=== PATIENT | male | born 1950 | race Caucasian/White ===

== ENCOUNTER 2019-07-30 11:00 | Outpatient (RCR) | payer MEDICARE, OTHER ==
[~2019-07-30 11:00] MED LIST: CELEXA40 MG; NAPROXEN; NORCO 7.5-3251 EACH PO; PREDNISONE PO; PRISTIQ ER100 MG PO; VICODIN PO; WELLBUTRIN SR150 MG
== END 2019-08-01 ==
LOC: PT 11:00
PROVIDERS: ATTEND Specialist
DX: M75.41 Impingement syndrome of right shoulder (principal)

== ENCOUNTER 2019-08-23 10:51 | Outpatient (RCR) | payer MEDICARE, OTHER | END 2019-08-31 | LOC: PT 10:51 | PROVIDERS: ATTEND Specialist | DX: M75.41 Impingement syndrome of right shoulder (principal) ==

== ENCOUNTER → 2019-08-30 | Outpatient (CLI) | payer MEDICARE, OTHER ==
--- NOTE | 2019-08-30 11:13 | Diagnostic Imaging Report ---
TECHNIQUE: Magnetic resonance imaging of the RIGHT SHOULDER was performed WITHOUT injected contrast. COMPARISON: None available. HISTORY: Right shoulder pain FINDINGS: MUSCLES AND TENDONS: Rotator Cuff: Tendons: Full thickness tearing of the supraspinatus and infraspinatus tendon with retraction to the glenohumeral joint. Muscles: Mild muscle atrophy of the supraspinatus and infraspinatus and more advanced atrophy of the teres minor. Biceps Tendon: The long head of the biceps tendon is intact and within the intertubercular groove. GLENOHUMERAL JOINT: High riding humeral head. Posterior subluxation of the humeral head. Joint effusion. Glenoid Labrum: Superior labral tearing. Articular Cartilage: No focal defect. AC JOINT AND ACROMION: Mild hypertrophic degenerative changes of the acromioclavicular joint. Subacromial spurring BONE: No acute fracture. SOFT TISSUES: Fluid in the subacromial subdeltoid bursa. IMPRESSION: Supraspinatus and infraspinatus full thickness tearing with retraction to the glenohumeral joint and mild atrophy. 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 Signed by: Dr. Milad Hurley M.D. on 08/30/2019 11:10 AM
== END ==
LOC: MRI 09:56
PROVIDERS: ATTEND Specialist
DX: M75.41 Impingement syndrome of right shoulder (principal)

== ENCOUNTER → 2019-09-14 | Day surgery (SDC) | payer MEDICARE, OTHER ==
--- NOTE | 2019-09-09 14:00 | Diagnostic Imaging Report ---
X-ray chest PA and lateral History: Preop. Comparison: None. Findings: Central airways, cardiomediastinal silhouettes, pleural spaces, lung becerra, upper abdomen unremarkable. There is presence of degenerative change in the right shoulder. Degenerative changes in the thoracic spine. Impression: No acute cardiopulmonary disease. Signed by: Ulises Bajwa MD on 09/09/2019 1:56 PM
[2019-09-09 14:45] LABS: BASOPHILS # (AUTO) 0.1 (0.0-0.1); EOSINOPHILS # (AUTO) 0.4 (0.0-0.4); EOSINOPHILS % 4.4 % (0.0-6.0); HEMATOCRIT 44.9 % (38.2-49.6); HEMOGLOBIN 15.2 g/dL (14.0-18.0); LYMPHOCYTES # (AUTO) 1.4 (1.0-3.2); LYMPHOCYTES % 17.2 % (18.0-39.1); MEAN CORPUSCULAR HEMOGLOBIN 31.1 pg (28-32); MEAN CORPUSCULAR HGB CONC 33.9 g/dL (31-35); MONOCYTES % 11.8 % (4.4-11.3); NEUTROPHILS # (AUTO) 5.3 (2.1-6.9); NEUTROPHILS % 64.7 % (38.7-80.0); PLATELET COUNT 299 x10e3/uL (140-360); RED BLOOD COUNT 4.88 x10e6/uL (4.3-5.7)
[~2019-09-14] MED LIST changes: +ACETAMINOPHEN 1000 MG/100 ML IV ONE; +AMLODIPINE BESY10 MG PO; +BUPIVACAINE HCL 0.5% INJ 30 ML VIAL INJ ONE; +CEFAZOLIN SOD 1 GM/NS 50ML 50 ML IV ONE; +CELEBREX200 MG PO; +EPINEPHRINE HCL 1:1000 1ML 1 MG/ML AMP ONE; +ETOMIDATE 2 MG/ML 10 ML INJ IV ONE; +GLYCOPYRROLATE INJ 0.2 MG/ML VIAL ONE; +LIDOCAINE HCL 2% LOCAL INJ 5 ML SDV VIAL INJ ONE; +LOSARTAN POTASS50 MG PO; +LOVASTATIN PO; +MULTIVITAMINS1 EAC7 PO; +NEOSTIGMINE 1 MG/ML 10ML VIAL ONE; +ONDANSETRON HCL INJ 2MG/ML 2ML 2 MG/ML VIAL ONE; +OSTEO BI-FLEX1 EAC2 PO; +PROPOFOL IV EMULSION 10 MG/ML 20 ML VIAL ONE; +ROCURONIUM BROMIDE 10 MG/ML 5ML VIAL IV ONE; +SEVOFLURANE INHAL SOLN 250 ML PEN BTL ONE
--- NOTE | 2019-09-14 10:12 | Operative Report ---
DATE OF PROCEDURE: 09/14/2019 SURGEON: Kal Murray MD TRENCHING MACHINE OPERATOR: Jakob Alvarado, certified PA. PREOPERATIVE DIAGNOSIS: Right shoulder rotator cuff tear. POSTOPERATIVE DIAGNOSIS: Right shoulder rotator cuff tear. PROCEDURES: Right shoulder arthroscopy, release of biceps tendon, subacromial decompression and rotator cuff repair. INDICATIONS: The patient is a 69-year-old gentleman, who has clinic signs and symptoms consistent with a large retracted rotator cuff tear. The findings and options have been discussed. The patient has failed conservative management and would like to proceed with definitive treatment. The risks and benefits and lengthy recovery of rotator cuff repair of surgery have been discussed. The possibility of incomplete repair due to the retraction and some fatty infiltration of the muscles have been discussed. All of his questions have been answered. He states he understands and wishes to proceed. PROCEDURE IN DETAIL: The patient was brought to the operating room and placed under general anesthetic. He received a regional block and prophylactic antibiotics in the holding area. He was positioned in the beach chair position on the shoulder table. His right upper extremity was prepped and draped in a sterile manner. A preoperative time-out was performed. A standard posterior arthroscopy portal was established. The shoulder was insufflated with sterile saline. Immediately evident was a tear of the entire supraspinatus and infraspinatus, and extending back into the teres minor. A lateral working portal was established. The articular surface of the rotator cuff was debrided back to more healthy tissue. There was grade 2 changes of chondromalacia in the glenohumeral surfaces. The labrum was degenerative. There was fraying of the biceps tendon. This was released with a pair of biting forceps and a mechanical shaver. The scope was placed into the subacromial space. A subacromial bursectomy and bony decompression were performed. The lateral gutter was debrided the bursa. The greater tuberosity was gently decorticated. An Arthrex SpeedBridge Double-Row construct was used to repair the rotator cuff. This had a surprisingly good elasticity and the bone quality was good. Skidway Worker holes were placed at the articular margin. Bioabsorbable suture anchors preloaded with FiberTape stitches were seated. An Arthrex PathJumporpion Suture Passer was used to pass the FiberTape stitches through the tendon. An anterior shuttle portal was established. The FiberTape stitches were then tensioned and anchored down to bleeding bone with secondary bioabsorbable anchors in the superolateral humeral cortex. Nice repair and opposition of the tendon down to bleeding cancellous bone was accomplished. The auxiliary stitches were not felt to be necessary. The arthroscopic instruments were removed. The portal incisions were closed with nylon stitches. A sterile bandage and an UltraSling were applied. The patient tolerated the procedure without any complications. Blood loss was less than 20 mL. All needle and sponge counts were correct. Kal Murray MD DR/ADRIANNE /[id number]
[2019-09-14 10:25] VITALS: BP 147/84
== END | disposition home or self-care (01) ==
LOC: OR 06:25
PROVIDERS: ATTEND Specialist
DX: S46.021A Laceration of muscle(s) and tendon(s) of the rotator cuff of right shoulder, initial encounter (principal); M94.211 Chondromalacia, right shoulder; J45.909 Unspecified asthma, uncomplicated; G51.0 Bell's palsy; G47.33 Obstructive sleep apnea (adult) (pediatric); I10 Essential (primary) hypertension; Z01.810 Encounter for preprocedural cardiovascular examination; Z01.812 Encounter for preprocedural laboratory examination; Z11.59 Encounter for screening for other viral diseases
CPT/HCPCS: 36415; 71046; 85025; 93005; J0171; J0690; J2001; J2405; J2710; U0002

== ENCOUNTER 2019-10-29 09:24 | Outpatient (RCR) | payer MEDICARE, OTHER ==
[~2019-10-29 09:24] MED LIST changes: -ACETAMINOPHEN 1000 MG/100 ML IV ONE; -BUPIVACAINE HCL 0.5% INJ 30 ML VIAL INJ ONE; -CEFAZOLIN SOD 1 GM/NS 50ML 50 ML IV ONE; -EPINEPHRINE HCL 1:1000 1ML 1 MG/ML AMP ONE; -ETOMIDATE 2 MG/ML 10 ML INJ IV ONE; -GLYCOPYRROLATE INJ 0.2 MG/ML VIAL ONE; -LIDOCAINE HCL 2% LOCAL INJ 5 ML SDV VIAL INJ ONE; -NEOSTIGMINE 1 MG/ML 10ML VIAL ONE; -ONDANSETRON HCL INJ 2MG/ML 2ML 2 MG/ML VIAL ONE; -PROPOFOL IV EMULSION 10 MG/ML 20 ML VIAL ONE; -ROCURONIUM BROMIDE 10 MG/ML 5ML VIAL IV ONE; -SEVOFLURANE INHAL SOLN 250 ML PEN BTL ONE
== END 2019-11-01 ==
LOC: PT 09:24
PROVIDERS: ATTEND Specialist
DX: M75.101 Unspecified rotator cuff tear or rupture of right shoulder, not specified as traumatic (principal); M62.81 Muscle weakness (generalized); M25.511 Pain in right shoulder; M25.611 Stiffness of right shoulder, not elsewhere classified

== ENCOUNTER → 2019-12-01 | Outpatient (RCR) | payer MEDICARE, OTHER | LOC: PT 11-03 16:17 | PROVIDERS: ATTEND Specialist | DX: M75.101 Unspecified rotator cuff tear or rupture of right shoulder, not specified as traumatic (principal); M62.81 Muscle weakness (generalized); M25.511 Pain in right shoulder; M25.611 Stiffness of right shoulder, not elsewhere classified | CPT/HCPCS: 97139 ==

== ENCOUNTER 2019-12-22 11:00 | Outpatient (RCR) | payer MEDICARE, OTHER | END 2020-01-01 | LOC: PT 11:00 | PROVIDERS: ATTEND Specialist | DX: M75.101 Unspecified rotator cuff tear or rupture of right shoulder, not specified as traumatic (principal); M62.81 Muscle weakness (generalized); M25.511 Pain in right shoulder; M25.611 Stiffness of right shoulder, not elsewhere classified | CPT/HCPCS: 97139 ==

== ENCOUNTER 2020-01-17 07:33 | Observation (INO) | payer MEDICARE, OTHER ==
[2020-01-13 12:40] LABS: BASOPHILS # (AUTO) 0.1 (0.0-0.1); BASOPHILS % 0.8 % (0.0-1.0); EOSINOPHILS # (AUTO) 0.3 (0.0-0.4); EOSINOPHILS % 3.6 % (0.0-6.0); HEMOGLOBIN 14.7 g/dL (14.0-18.0); LYMPHOCYTES # (AUTO) 1.3 (1.0-3.2); MEAN CORPUSCULAR HEMOGLOBIN 30.8 pg (28-32); MEAN CORPUSCULAR HGB CONC 34.2 g/dL (31-35); MEAN CORPUSCULAR VOLUME 90.1 fL (81-99); MONOCYTES # (AUTO) 0.8 (0.2-0.8); MONOCYTES % 11.6 % (4.4-11.3); NEUTROPHILS # (AUTO) 4.7 (2.1-6.9); NEUTROPHILS % 65.3 % (38.7-80.0); PLATELET COUNT 286 x10e3/uL (140-360); RED BLOOD COUNT 4.77 x10e6/uL (4.3-5.7); RED CELL DISTRIBUTION WIDTH 12.9 % (11.7-14.4)
[~2020-01-17] VITALS: Ht 180.3 cm; Wt 92.1 kg
[2020-01-17] MEDS ORDERED: ATORVASTATIN CA20 MG PO (07:47)
[2020-01-17] MEDS ORDERED: GABAPENTIN 300 MG CAP ONE (08:09)
[2020-01-17] MEDS ORDERED: CELECOXIB 200 MG CAP ONE (08:09)
[2020-01-17] MEDS ORDERED: DEXAMETHASONE SOD PHOS 10 MG/1 ML VIAL ONE (08:09)
[2020-01-17] MEDS ORDERED: CEFAZOLIN SOD 1 GM/NS 50ML 100 ML IV ONE (08:09)
[2020-01-17] MEDS ORDERED: ROPIVACAINE 246.25 MG, EPINEPHRINE HCL 1:1000 1ML 0.5 MG, CLONIDINE HCL 0.08 MG, KETORO... INJ ONE ×5 (08:30)
[2020-01-17] MEDS ORDERED: BUPIVACAINE 7.5MG/ML /DEXTROSE 82.5MG/ML 2 ML AMP INJ ONE (08:34)
[2020-01-17] MEDS ORDERED: TRANEXAMIC ACID 1,000 MG/10 ML ML ONE (09:17)
[2020-01-17] MEDS ORDERED: SODIUM CHLORIDE 0.9% 500ML 500 ML ONE (09:17)
[2020-01-17] MEDS ORDERED: VANCOMYCIN HCL 1 GM VIAL ONE (09:17)
[2020-01-17] MEDS ORDERED: VANCOMYCIN HCL 1,000 MG ONE (09:19)
[2020-01-17] MEDS ORDERED: KETOROLAC TROMETHAMINE 30 MG/ML VIAL IV PRN (11:00)
[2020-01-17] MEDS ORDERED: ONDANSETRON HCL INJ 2MG/ML 2ML 2 MG/ML VIAL IV PRN (11:00)
[2020-01-17] MEDS ORDERED: HYDROCODONE/APAP 7.5MG-325MG 1 EA TAB PO PRN (11:00)
[2020-01-17] MEDS ORDERED: DIPHENHYDRAMINE HCL INJ 50 MG/ML VIAL IV PRN (11:00)
[2020-01-17] MEDS ORDERED: ACETAMINOPHEN 650 MG SUPP PR PRN (11:00)
[2020-01-17] MEDS ORDERED: DOCUSATE SODIUM 100 MG CAP PO PRN (11:00)
[2020-01-17] MEDS ORDERED: HYDROCODONE/APAP 5MG-325MG TAB PO PRN (11:00)
--- OUTSIDE RECORDS SUMMARY | 2020-01-17 11:33 | XMS REPORT | Clinical Summary ---
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 Role Phone Valery Conner MD PCP Allergies No Known Active Allergies Medications Not on file Active Problems Not on file Social History Date Tobacco Use Types Packs/Day Years Used Never Assessed Sex Assigned at Date Recorded Not on file Last Filed Vital Signs Not on file Plan of Treatment Health Maintenance Due Date Last Done Comments COLONOSCOPY SCREENING 01/03/2000 SHINGLES VACCINES (#1) 01/03/2000 65+ PNEUMOCOCCAL VACCINE 2015 (1 of 1 - PPSV23) INFLUENZA VACCINE 10/02/2019 Results Not on fileafter 01/16/2019 Insurance Type Payer Benefit Subscriber ID Effective Phone Address Plan / Dates Group Medicare MEDICARE MEDICARE [id number] 2015- [place], PART A AND Present [place] B HMO/PPO [facility] [id number] 2016-P THCARE resent CHOICE/CHO ICE + [phone] Advance Directives For more information, please contact: [phone] Patient Communication Analyst Explanation Type Date Recorded Advance Directives, Living Will and Medical Power of Drier Feeder
--- OUTSIDE RECORDS SUMMARY | 2020-01-17 11:33 | XMS REPORT | Continuity of Care Document ---
Author Author [facility] t Organization [facility] t Address [address] [place] [phone] Phone Unavailable Care Team Providers Care Precinct Captain Name Role Phone NONSTAFF PCP Unavailable AMANDEEP GARCIA Unavailable Payers Payer Name Policy Type Policy Number Effective Date Expiration Date Estelle wang [facility] [id number] 2015 00:00:00 [facility] Medicare A & B [id number] 2015 00:00:00 [facility] Problems Condition Name Condition Details Condition Category Status Onset Date Resolution Date Last Treatment Date Treating Clinician Comments Source Problem Condition Active [facility] Allergies, Adverse Reactions, Alerts This patient has no known allergies or adverse reactions. Social History Social Habit Start Date Stop Date Quantity Comments Source Sex Assigned At Zachary Christina Medications Ordered Medication Name Filled Medication Name Start Date Stop Da te Current Medication? Ordering Clinician Indication Dosage Frequency Signature (SIG) Comments Components Source Amlodipine Besylate Amlodipine Besylate Yes 10 Daily [facility] Celecoxib (Celebrex) 200 Mg CAPSULE Celecoxib (Celebrex) 200 Mg CAPSU LE Yes 200 Daily [facility] Desvenlafaxine Succinate (Pristiq Er) 100 Mg TAB.ER.24 H Desvenlafaxine Succinate (Pristiq Er) 100 Mg TAB.ER.24H Yes 150 Daily [facility] Glucosamine/D3/Boswellia Jessica (Osteo Bi-Flex Caplet) 1 Each TABLET Glucosamine/D3/Boswellia Jessica (Osteo Bi-Flex Caplet) 1 Each TABLET Yes Daily [facility] Losartan Potassium Losartan Potassium Yes 50 Da lorne [facility] Lovastatin Lovastatin Yes Bedtime [facility] Multivitamin (Multivitamins) 1 Each CAPSULE Multivitam in (Multivitamins) 1 Each CAPSULE Yes Daily [facility] Hydrocodone Bit/Acetaminophen ([place] 7.5-325 Tablet) 1 Each TABLET Hydrocodone Bit/Acetaminophen ([place] 7.5-325 Tablet) 1 Each TABLET 00:00:00 No 1 Every 6 Hours as needed for Prn [facility] Prednisone Prednisone 2019-09-08 00:00:00 No Ness ly [facility] Vicodin Vicodin 2019-09-08 00:00:00 No As Needed [facility] Bupropion Hcl (Wellbutrin Sr) 150 Mg TABLET.ER Bupropi on Hcl (Wellbutrin Sr) 150 Mg TABLET.ER 2014-04-01 00:00:00 No Daily [facility] Citalopram Hydrobromide (Celexa) 40 Mg TABLET Citalopr am Hydrobromide (Celexa) 40 Mg TABLET 2013-02-08 00:00:00 No Daily [facility] Naproxen Naproxen 2013-02-08 00:00:00 No Twice A Day [facility] Vital Signs Vital Name Observation Time Observation Value Comments Source Heart Rate 2019-09-14 11:25:00 80 /min [facility] Respiratory rate 2019-09-14 11:25:00 18 /min [facility] BP Systolic 2019-09-14 11:25:00 147 mm[Hg] [facility] BP Diastolic 2019-09-14 11:25:00 84 mm[Hg] [facility] Oxygen saturation by Pulse oximetry 2019-09-14 11:25:00 98 /min [facility] Body Temperature 2019-09-14 09:56:00 97.4 [degF] [facility] Body Temperature 2019-09-14 08:56:00 97.4 [degF] [facility] Procedures Procedure Date / Time Performed Performing Clinician Christophe knapp ARTHROSCOP ROTATOR CUFF REPR 2019-09-14 00:00:00 [facility] X-ray of chest, two views 2019-09-09 00:00:00 [facility] MRI joint upr extrem w/o dye 2019-08-30 00:00:00 [facility] Plan of Care Planned Activity Planned Date Details Comments Source Future Scheduled Test 2019-10-02 00:00:00 INFLUENZA VACCINE [code = INFLUENZA VACCINE] [facility] Scheduled Test 2015 00:00:00 65+ PNEUMOCOCCAL V ACCINE (1 of 1 - PPSV23) [code = 65+ PNEUMOCOCCAL VACCINE (1 of 1 - PPSV23)] [facility] Scheduled Test 2000-01-03 00:00:00 COLONOSCOPY SCREEN ING [code = COLONOSCOPY SCREENING] [facility] Scheduled Test 2000-01-03 00:00:00 SHINGLES VACCINES (#1) [code = SHINGLES VACCINES (#1)] [facility] Encounters Start Date/Time End Date/Time Encounter Type Admission Type [facility] Care Department Encounter ID Source 2019-12-03 12:06:00 2020 00:59:00 Discharged [facility] [id number] [facility] 2019-11-03 17:17:00 2019-12-02 00:59:00 Discharged Rec[facility]ring [facility] [id number] [facility] 2019-10-29 10:24:00 2019-11-02 00:59:00 Discharged Recurring [facility] [id number] [facility] 2019-09-14 07:25:00 2019-09-14 07:25:00 Registered Surgical Day Car e AMANDEEP [facility] [id number] [facility] 2019-08-02 11:59:00 2019-09-01 00:59:[address] [facility] [id number] [facility] 2019-08-30 10:56:00 2019-08-30 10:56:00 Registered Clinic [address] [facility] [id number] [facility] - Patients [facility] 2019-07-13 10:52:00 2019-08-02 00:59:[address] [facility] [id number] [facility] Results Test Description Test Time Test Comments Results Result Comments Source Fluoroscopic procedure less than one hour duration 9 15:43:00 Test Item Coronavirus (PCR) (test code = Coronavirus (PCR)) NOT DETECTED NOTD ETECTED [employer] Aptima SARS-CoV-2 assay is a nucleic amplification test intended for the qualitative detection of RNA from SARS-CoV-2 from nasopharyngeal (MANAGEMENT ARCHITECT) specimens. It is used under Emergency Use Authorization (EUA) by FDA.A positive result is indicative of the presence of SARS-CoV-2 RNA. Clinical correlation with patient history and other diagnostic information is necessary to determine patient infe ction status.A negative (Not Detected) result does not preclude SARS-CoV-2 infec tion. Clinical Correlation with patient history and other diagnostic information should be used in patient management decisions.Invalid: Unable to generate a va lid result on this specimen. Please submit a new specimen for reprat testing oc clinically indicated.Tesing performed by:[facility] [address] [place] [address] [id number], Poncho Quiroz MD, PhD [facility] leukocytes automated count (number/volume)2019-09-09 15:29:00* Test Item Value Reference Range Interpretation Comments White Blood Count (test code = 6690-2) 8.21 10*3/uL 4.8-10.8 [facility] erythrocytes automated count (number/volume)2019-09-09 15:29:00* Test Item Value Reference Range Interpretation Comments Red Blood Count (test code = 789-8) 4.88 10*6/mL 4.3-5.7 [facility] hemoglobin measurement (moles/volume)2019-09-09 15:29:00* Test Item Value Reference Range Interpretation Comments Hemoglobin (test code = 73121-5) 15.2 g/dL 14.0-18.0 [facility] CampusAutomated blood hematocrit (volume fraction)2019-09-09 15:29:00* Test Item Value Reference Range Interpretation Comments Hematocrit (test code = 4544-3) 44.9 % 38.2-49.6 [facility] CampusAutomated erythrocyte mean corpuscular ixrjsl6047-77-63 15:29:00* Test Item Value Reference Range Interpretation Comments Mean Corpuscular Volume (test code = 787-2) 92.0 81-99 [facility] CampusAutomated erythrocyte mean corpuscular hemoglobin (mass per erythrocyte)2019-09-09 15:29:00* Test Item Value Reference Range Interpretation Comments Mean Corpuscular Hemoglobin (test code = 785-6) 31.1 pg 28-32 [facility] CampusAutomated erythrocyte mean corpuscular hemoglobin concentration measurement (mass/volume)2019-09-09 15:29:00* Test Item Value Reference Range Interpretation Comments Mean Corpuscular Hemoglobin Concent (test code = 786-4) 33.9 g/dL 31-35 [facility] CampusRDW OcuWj-Zpc5167-22-09 15:29:00* Test Item Value Reference Range Interpretation Comments Red Cell Distribution Width (test code = 56313-7) 13.0 % 11.7 -14.4 [facility] CampusAutomated blood platelet count (count/volume)2019-09-09 15:29:00* Test Item Value Reference Range Interpretation Comments Platelet Count (test code = 777-3) 299 10*3/uL 140-360 [facility] CampusAutomated blood segmented neutrophil count as percentage of total zuitinthrd0235-18-81 15:29:00* Test Item Value Reference Range Interpretation Comments Neutrophils (%) (Auto) (test code = 61278-1) 64.7 % 38.7-80.0 [facility] CampusAutomated blood lymphocyte count as percentage ot total bcpzahnzoh8172-55-29 15:29:00* Test Item Value Reference Range Interpretation Comments Lymphocytes (%) (Auto) (test code = 736-9) 17.2 % 18.0-39.1 [facility] CampusAutomated blood monocyte count as percentage of total qzyndjrdeo6173-94-09 15:29:00* Test Item Value Reference Range Interpretation Comments Monocytes (%) (Auto) (test code = 5905-5) 11.8 % 4.4-11.3 [facility] CampusAutomated blood eosinophil count as percentage of total vrsdzwiggy2164-58-30 15:29:00* Test Item Value Reference Range Interpretation Comments Eosinophils (%) (Auto) (test code = 713-8) 4.4 % 0.0-6.0 [facility] CampusAutomated blood basophil count as percentage of total holrgukaun5999-87-91 15:29:00* Test Item Value Reference Range Interpretation Comments Basophils (%) (Auto) (test code = 706-2) 1.0 % 0.0-1.0 [facility] CampusFluoroscopic procedure less than one hour gjgdcrxu4277-11-12 15:29:00* Test Item Value Reference Range Interpretation Comments IM GRANULOCYTES % (test code = IM GRANULOCYTES %) 0.9 % 0.0- 1.0 [facility] CampusAutom[facility] blood neutrophil count 2019-09-09 15:29:00* Test Item Value Reference Range Interpretation Comments Neutrophils # (Auto) (test code = 751-8) 5.3 2.1-6.9 [facility]Blood lymphocytes count (number/volume) 2019-09-09 15:29:00* Test Item Value Reference Range Interpretation Comments Lymphocytes # (Auto) (test code = 88603-2) 1.4 1.0-3.2 [facility]Blood monocytes automated count (number/volume)2019-09-09 15:29:00* Test Item Value Reference Range Interpretation Comments Monocytes # (Auto) (test code = 742-7) 1.0 0.2-0.8 [facility] CampusAutomated blood eosinophil count 2019-09-09 15:29:00* Test Item Value Reference Range Interpretation Comments Eosinophils # (Auto) (test code = 711-2) 0.4 0.0-0.4 [facility] CampusAutomated blood basophil count (count/volume)2019-09-09 15:29:00* Test Item Value Reference Range Interpretation Comments Basophils # (Auto) (test code = 704-7) 0.1 0.0-0.1 [facility] CampusFluoroscopic procedure less than one hour jpyzhtxx6367-26-53 15:29:00* Test Item Value Reference Range Interpretation Comments Absolute Immature Granulocyte (auto (mame t code = Absolute Immature Granulocyte (auto) 0.07 10*3/uL 0-0.1 [facility] CampusFluoroscopic procedure less than one hour ahzhhusg2727-62-67 14:43:00* Test Item Value Reference Range Interpretation Comments Coronavirus (PCR) (test code = Coronavirus (PCR)) NOT DETECTED NOTD ETECTED [employer] Aptima SARS-CoV-2 assay is a nucleic amplification test intended for the qualitative detection of RNA from SARS-CoV-2 from nasopharyngeal (MANAGEMENT ARCHITECT) specimens. It is used under Emergency Use Authorization (EUA) by FDA.A positive result is indicative of the presence of SARS-CoV-2 RNA. Clinical correlation with patient history and other diagnostic information is necessary to determine patient infe ction status.A negative (Not Detected) result does not preclude SARS-CoV-2 infec tion. Clinical Correlation with patient history and other diagnostic information should be used in patient management decisions.Invalid: Unable to generate a va lid result on this specimen. Please submit a new specimen for reprat testing oc clinically indicated.Tesing performed by:[facility] [address] [place] [address] [id number], Poncho Quiroz MD, PhD [facility] CampusFluoroscopic procedure less than one hour texpjgvk3655-42-50 14:43:00* Test Item Value Reference Range Interpretation Comments Coronavirus (PCR) (test code = Coronavirus (PCR)) NOT DETECTED NOTD ETECTED H[employer] Aptima SARS-CoV-2 assay is a nucleic amplification test intended for the qualitative detection of RNA from SARS-CoV-2 from nasopharyngeal (MANAGEMENT ARCHITECT) specimens. It is used under Emergency Use Authorization (EUA) by FDA.A positive result is indicative of the presence of SARS-CoV-2 RNA. Clinical correlation with patient history and other diagnostic information is necessary to determine patient infe ction status.A negative (Not Detected) result does not preclude SARS-CoV-2 infec tion. Clinical Correlation with patient history and other diagnostic information should be used in patient management decisions.Invalid: Unable to generate a va lid result on this specimen. Please submit a new specimen for reprat testing oc clinically indicated.Tesing performed by:[facility] [address] [place] [address] [id number], Poncho Quiroz MD, PhD [facility] CampusBlridge[facility] leukocytes automated count (number/volume)2019-09-09 14:29:00* Test Item Value Reference Range Interpretation Comments White Blood Count (test code = 6690-2) 8.21 4.8-10.8 [facility] CampusBlood erythrocytes automated count (number/volume)2019-09-09 14:29:00* Test Item Value Reference Range Interpretation Comments Red Blood Count (test code = 789-8) 4.88 4.3-5.7 [facility] CampusBlood hemoglobin measurement (moles/volume)2019-09-09 14:29:00* Test Item Value Reference Range Interpretation Comments Hemoglobin (test code = 83143-1) 15.2 14.0-18.0 [facility] CampusAutomated blood hematocrit (volume fraction)2019-09-09 14:29:00* Test Item Value Reference Range Interpretation Comments Hematocrit (test code = 4544-3) 44.9 38.2-49.6 [facility] CampusAutomated erythrocyte mean corpuscular egjwxg7294-84-69 14:29:00* Test Item Value Reference Range Interpretation Comments Mean Corpuscular Volume (test code = 787-2) 92.0 81-99 [facility] CampusAutomated erythrocyte mean corpuscular hemoglobin (mass per erythrocyte)2019-09-09 14:29:00* Test Item Value Reference Range Interpretation Comments Mean Corpuscular Hemoglobin (test code = 785-6) 31.1 28-32 [facility] CampusAutomated erythrocyte mean corpuscular hemoglobin concentration measurement (mass/volume)2019-09-09 14:29:00* Test Item Value Reference Range Interpretation Comments Mean Corpuscular Hemoglobin Concent (test code = 786-4) 33.9 31-35 [facility] CampusRDW JahAi-Soh2677-31-09 14:29:00* Test Item Value Reference Range Interpretation Comments Red Cell Distribution Width (test code = 84350-3) 13.0 11.7 -14.4 [facility] CampusAutomated blood platelet count (count/volume)2019-09-09 14:29:00* Test Item Value Reference Range Interpretation Comments Platelet Count (test code = 777-3) 299 140-360 [facility] CampusAutomated blood segmented neutrophil count as percentage of total yrhiqseyzl4349-81-93 14:29:00* Test Item Value Reference Range Interpretation Comments Neutrophils (%) (Auto) (test code = 24922-3) 64.7 38.7-80.0 [facility] CampusAutomated blood lymphocyte count as percentage ot total qtxazpzddz8164-78-51 14:29:00* Test Item Value Reference Range Interpretation Comments Lymphocytes (%) (Auto) (test code = 736-9) 17.2 18.0-39.1 [facility] CampusAutomated blood monocyte count as percentage of total kiovetkuyg8168-66-25 14:29:00* Test Item Value Reference Range Interpretation Comments Monocytes (%) (Auto) (test code = 5905-5) 11.8 4.4-11.3 [facility] CampusAutomated blood eosinophil count as percentage of total sxggcsyjux8243-21-89 14:29:00* Test Item Value Reference Range Interpretation Comments Eosinophils (%) (Auto) (test code = 713-8) 4.4 0.0-6.0 [facility] CampusAutomated blood basophil count as percentage of total kwgishwqwn7853-95-25 14:29:00* Test Item Value Reference Range Interpretation Comments Basophils (%) (Auto) (test code = 706-2) 1.0 0.0-1.0 [facility] CampusFluoroscopic procedure less than one hour jryfuiuf2238-38-19 14:29:00* Test Item Value Reference Range Interpretation Comments IM GRANULOCYTES % (test code = IM GRANULOCYTES %) 0.9 0.0- 1.0 [facility] CampusAutomated blood neutrophil count 2019-09-09 14:29:00* Test Item Value Reference Range Interpretation Comments Neutrophils # (Auto) (test code = 751-8) 5.3 2.1-6.9 [facility] lymphocytes count (number/volume) 2019-09-09 14:29:00* Test Item Value Reference Range Interpretation Comments Lymphocytes # (Auto) (test code = 64499-9) 1.4 1.0-3.2 [facility] monocytes automated count (number/volume)2019-09-09 14:29:00* Test Item Value Reference Range Interpretation Comments Monocytes # (Auto) (test code = 742-7) 1.0 0.2-0.8 [facility] CampusAutomated blood eosinophil count 2019-09-09 14:29:00* Test Item Value Reference Range Interpretation Comments Eosinophils # (Auto) (test code = 711-2) 0.4 0.0-0.4 [facility] CampusAutcarolinas continuecare [facility]ained blood basophil count (count/volume)2019-09-09 14:29:00* Test Item Value Reference Range Interpretation Comments Basophils # (Auto) (test code = 704-7) 0.1 0.0-0.1 [facility] CampusFluoroscopic procedure less than one hour lxpvbtpg2032-34-57 14:29:00* Test Item Value Reference Range Interpretation Comments Absolute Immature Granulocyte (auto (mame t code = Absolute Immature Granulocyte (auto) 0.07 0-0.1 [facility] leukocytes automated count (number/volume)2019-09-09 14:29:00* Test Item Value Reference Range Interpretation Comments White Blood Count (test code = 6690-2) 8.21 4.8-10.8 [facility] CampusBlood erythrocytes automated count (number/volume)2019-09-09 14:29:00* Test Item Value Reference Range Interpretation Comments Red Blood Count (test code = 789-8) 4.88 4.3-5.7 [facility] CampusBlood hemoglobin measurement (moles/volume)2019-09-09 14:29:00* Test Item Value Reference Range Interpretation Comments Hemoglobin (test code = 90922-6) 15.2 14.0-18.0 [facility] CampusAutomated blood hematocrit (volume fraction)2019-09-09 14:29:00* Test Item Value Reference Range Interpretation Comments Hematocrit (test code = 4544-3) 44.9 38.2-49.6 [facility] CampusAutomated erythrocyte mean corpuscular yzxdds6535-93-28 14:29:00* Test Item Value Reference Range Interpretation Comments Mean Corpuscular Volume (test code = 787-2) 92.0 81-99 [facility] CampusAutomated erythrocyte mean corpuscular hemoglobin (mass per erythrocyte)2019-09-09 14:29:00* Test Item Value Reference Range Interpretation Comments Mean Corpuscular Hemoglobin (test code = 785-6) 31.1 28-32 [facility] CampusAutomated erythrocyte mean corpuscular hemoglobin concentration measurement (mass/volume)2019-09-09 14:29:00* Test Item Value Reference Range Interpretation Comments Mean Corpuscular Hemoglobin Concent (test code = 786-4) 33.9 31-35 [facility] CampusRDW BsnGa-Vfa6756-24-09 14:29:00* Test Item Value Reference Range Interpretation Comments Red Cell Distribution Width (test code = 92634-3) 13.0 11.7 -14.4 [facility] CampusAutomated blood platelet count (count/volume)2019-09-09 14:29:00* Test Item Value Reference Range Interpretation Comments Platelet Count (test code = 777-3) 299 140-360 [facility] CampusAutomated blood segmented neutrophil count as percentage of total jiyoiidjbj2161-89-66 14:29:00* Test Item Value Reference Range Interpretation Comments Neutrophils (%) (Auto) (test code = 26156-5) 64.7 38.7-80.0 [facility] CampusAutomated blood lymphocyte count as percentage ot total jjgxciitwu6472-71-87 14:29:00* Test Item Value Reference Range Interpretation Comments Lymphocytes (%) (Auto) (test code = 736-9) 17.2 18.0-39.1 [facility] CampusAutomated blood monocyte count as percentage of total bbstfmxesu7829-19-60 14:29:00* Test Item Value Reference Range Interpretation Comments Monocytes (%) (Auto) (test code = 5905-5) 11.8 4.4-11.3 [facility] CampusAutcarolin[facility] blood eosinophil count as percentage of total cdwzbzvhbg9182-67-86 14:29:00* Test Item Value Reference Range Interpretation Comments Eosinophils (%) (Auto) (test code = 713-8) 4.4 0.0-6.0 [facility] CampusAutomated blood basophil count as percentage of total ezxlmljxiu6151-99-09 14:29:00* Test Item Value Reference Range Interpretation Comments Basophils (%) (Auto) (test code = 706-2) 1.0 0.0-1.0 [facility] CampusFluoroscopic procedure less than one hour lhnepqxu8778-68-39 14:29:00* Test Item Value Reference Range Interpretation Comments IM GRANULOCYTES % (test code = IM GRANULOCYTES %) 0.9 0.0- 1.0 [facility] CampusAutomated blood neutrophil count 2019-09-09 14:29:00* Test Item Value Reference Range Interpretation Comments Neutrophils # (Auto) (test code = 751-8) 5.3 2.1-6.9 [facility] CampusBlood lymphocytes count (number/volume) 2019-09-09 14:29:00* Test Item Value Reference Range Interpretation Comments Lymphocytes # (Auto) (test code = 93788-6) 1.4 1.0-3.[address] [facility] automated count (number/volume)2019-09-09 14:29:00* Test Item Value Reference Range Interpretation Comments Monocytes # (Auto) (test code = 742-7) 1.0 0.2-0.8 [facility] CampusAutomated blood eosinophil count 2019-09-09 14:29:00* Test Item Value Reference Range Interpretation Comments Eosinophils # (Auto) (test code = 711-2) 0.4 0.0-0.4 [facility] CampusAutomated blood basophil count (count/volume)2019-09-09 14:29:00* Test Item Value Reference Range Interpretation Comments Basophils # (Auto) (test code = 704-7) 0.1 0.0-0.1 [facility] CampusFluoroscopic procedure less than one hour vapmlmhy0656-59-70 14:29:00* Test Item Value Reference Range Interpretation Comments Absolute Immature Granulocyte (auto (mame t code = Absolute Immature Granulocyte (auto) 0.07 0-0.1 [facility] CampusCHEST 2 VABOX5428-06-88 13:55:00 [facility] [address] [place] [address] Patient Name: ELISA BROOKS MR #: [id number] : 1950 Age/Sex: 69/M Req #: [id number] Adm Physician: Ordered by: AMANDEEP GARCIA MD Report #: [id number] Location: OR Room/Bed: Procedure: [id number] DX/CHEST 2 VIEW S Exam Date: 09/09/19 Exam Time: 1330 REPORT STATUS: Signed X-ray chest PA and later al History: Preop. Comparison: None. Findings: Central airways, c ardiomediastinal silhouettes, pleural spaces, lung becerra, upper abdomen unrem arkable. There is presence of degenerative change in the right shoulder. 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 Impression: No acute cardiopulmonary disease. Signed by: Shaji Dixon MD on 09/09/2019 1:56 PM Dictated By: SHAJI DIXON MD 135 Transcribed By: LATOYA on 09/09/19 1353 COPY TO: AMANDEEP GARCIA MD MRI SHOULDER RIGHT [id number] 11:06:00 [place] [id number] Patient Name: ELISA BROOKS MR #: [id number] : 1950 Age/Sex: 69/M Req #: [id number] Adm Physician: Ordered by: AMANDEEP GARCIA MD Report #: [id number] Location: MRI Room/Bed: Procedure: [id number] MRI/MRI SHOULDE R RIGHT WO Exam Date: Exam Time: REPORT STATUS: Signed TECHNIQUE: Magnetic reson ance imaging of the RIGHT SHOULDER was performed WITHOUT injected contrast. COMPARISON: None available. HISTORY: Right shoulder pain FINDINGS: MUSCLES AND TENDONS: Rotator Cuff: Tendons: Full thickness tearing of the supraspinatus and infraspinatus tendon with retraction to the glenohumeral joint. Muscles: Mild muscle atrophy of the supraspinatus and infraspinatus and more advanced atrophy of the teres minor. Biceps Tendon: The long head of the biceps tendon is intact a nd within the intertubercular groove. GLENOHUMERAL JOINT: High riding hum eral head. Posterior subluxation of the humeral head. Joint effusion. G lenoid Labrum: Superior labral tearing. Articular Cartilage: No focal d efect. AC JOINT AND ACROMION: Mild hypertrophic degenerative changes of the acromioclavicular joint. Subacromial spurring BONE: No acute fracture. SOFT TISSUES: Fluid in the subacromial subdeltoid bursa. IMPRESSION: Supraspinatus and infraspinatus full thickness tearing with retraction to the glenohumeral joint and mild atrophy. 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 Signed by: Dr. Madelaine Hansen M.D. on 08/02 11:10 AM Dictated By: MADELAINE HANSEN MD [id number] Transcribed By: LATOYA on 08/30/19 111 0 COPY TO: AMANDEEP GARCIA MD
[2020-01-17 11:52] VITALS: BP 130/82
--- NOTE | 2020-01-17 11:52 | NUR ---
Received patient from PACU via stretcher. S/P Right hip surgery with dressing and ice pack in placed. Abductor pillow in placed. Patient stated cannot feel the lower extremities and unable to wiggle toes at this time. Patient received spinal block during the procedure per report from PACU. Denies pain at this time. Respiration even and unlabored without SOB. Call light in reach.
--- NOTE | 2020-01-17 11:52 | Operative Report ---
DATE OF PROCEDURE: 01/17/2020 SURGEON: Kal Murray MD REGISTERED NURSE PRACTITIONER: Jakob Alvarado PA-C PREOPERATIVE DIAGNOSIS: Osteoarthritis, right hip. POSTOPERATIVE DIAGNOSIS: Osteoarthritis, right hip. PROCEDURE: Right total hip arthroplasty. INDICATIONS: The patient is a 70-year-old gentleman, who has end-stage arthritis of his right hip. He has failed extensive conservative management and would now like to proceed with a right total hip replacement. The risks and benefits of the procedure have been explained. All of his questions have been answered. He states he understands and wishes to proceed. DESCRIPTION OF PROCEDURE: The patient was brought to the operating room and given a spinal anesthetic. He received prophylactic antibiotics and tranexamic acid in the holding area. He was positioned in the left lateral decubitus position. His right hip was prepped and draped in a sterile manner. A preoperative time-out was performed. A posterior approach was made to the right hip. Hemostasis was obtained with electrocautery. More than usual oozing was encountered. Time was taken to ensure hemostasis. The deep fascia was incised and a self-retaining Charnley retractor was placed. The posterior capsule was carefully exposed and released. Once again, time was taken to ensure hemostasis with electrocautery. The hip was dislocated and an oscillating saw was used to resect the femoral head. Extensive loss of articular cartilage was noted. Acetabular retractors were carefully placed. There were no remnants of the labrum. There were large peripheral osteophytes. The true floor of the acetabulum was established with a 46 mm reamer. The socket was then sequentially reamed to 57 mm. Irrigation was performed between each reaming. Hemispherical cancellous bleeding bone was encountered. A Sterling/Biomet 58 mm outer diameter OsseoTi socket was then impacted into place. Excellent bone fixation was felt to be obtained. Fixation was augmented with a single 25 mm screw placed into the ilium. A highly cross-linked polyethylene liner with a 36 mm inner diameter was then seated into place. Care was taken to make sure that there was no interposition of soft tissue. Large marginal osteophytes were carefully removed with a Abarca elevator and rongeur forceps. The socket was then packed with a moistly soaked lap sponge. Attention was directed towards the proximal femur. A box cutting osteotome and taper pin reamer were used to establish entry to the femoral canal. A large anterior osteophyte off the femoral neck was excised with a curved osteotome. The Sterling/Biomet taper lock broaches were impacted. A size #9 stem had good canal fill and stability for trial reduction. I elected to use a +3 mm head to restore soft tissue balancing and provide optimal stability through a full arc of motion. The trial implants were removed. The hip was further irrigated with a shower tip pulsatile lavage. The stem was seated into place. A +3 mm neck on a 36 mm ceramic head were then seated onto the stem after it was clean and dry. A final reduction was performed. The posterior capsule was carefully repaired with #2 Ethibond. The remnants of the short external rotators were repaired with #2 Ethibond. The hip was further irrigated prior to tear sprinkling 500 mg of vancomycin powder into the deep wound. The deep fascia was closed with interrupted #2 Ethibond. The skin was carefully closed with subcuticular Vicryl and zina. A sterile Aquacel bandage was applied. The patient was returned to the supine position and transported to the recovery room in stable condition. Estimated blood loss was 150 mL. All needle and sponge counts were noted to be correct. Kal Murray MD DR/ADRIANNE /[id number]
[2020-01-17 12:14] VITALS: BP 130/82
--- NOTE | 2020-01-17 12:15 | NUR ---
Patient stated that he wants to take his own medication. Explained to patient that medication reconciliation is part of the admission process. Patient is adamant in taking his own medicine and states " I don't want to be charged when I brought my own medication".
--- NOTE | 2020-01-17 12:41 | Diagnostic Imaging Report ---
Pelvis, one view AP INDICATION: ^POST OP ^[id number] ^1108 ^IN PACU Comparison: None available. Discussion: Postoperative changes from right hip arthroplasty are noted with satisfactory alignment of the acetabular and femoral components. Subcutaneous emphysema and lateral skin zina are noted. Moderate degenerative change of the left hip joint is noted. Pubic symphysis is not widened. IMPRESSION: Postoperative changes from right hip arthroplasty with anatomic alignment. Signed by: Eric Meadows MD on 01/17/2020 12:38 PM
[2020-01-17] MEDS: SODIUM CHLORIDE 0.9% 1000ML 1,000 ML IV SCH ×2 (13:13→21:00)
[2020-01-17] MEDS ORDERED: ACETAMINOPHEN 1000 MG/100 ML IV PRN (14:00)
[2020-01-17 16:28] VITALS: BP 115/82
[2020-01-17] MEDS: CEFAZOLIN SOD 1 GM/NS 50ML 50 ML IV SCH (17:04)
[2020-01-17] MEDS: ASPIRIN 325 MG TAB PO SCH (17:04)
[2020-01-17] MEDS: CELECOXIB 100 MG CAP PO SCH (17:04)
--- NOTE | 2020-01-17 19:10 | NUR ---
WALKING ROUNDS PERFORMED, RECEIVED PT LAYING SEMI FOWLERS IN BED, AAOX3, RR EVEN AND NON-LABORED, ON ROOM AIR. NO S/SX OF DISTRESS NOTED. (R) HIP AQUACEL DRESSING CDI. ABDUCTOR PILLOW IN PLACE BETWEEN LEGS. LEFT PT LAYING SEMI FOWLERS IN BED, BED IN LOW LOCKED POSITION, SIDE RAILS UPX2, CALL LIGHT AND PHONE WITHIN REACH. FAMILY AT BEDSIDE.
[2020-01-17 20:00] VITALS: BP 133/89
[2020-01-17] MEDS ORDERED: ZOLPIDEM TARTRATE 5 MG TAB PO PRN (21:00)
[2020-01-17] MEDS ORDERED: ACETAMINOPHEN 1000 MG/100 ML 100 ML IV ONE (21:00)
[2020-01-17 21:50] VITALS: BP 133/89
[2020-01-17 23:20] VITALS: BP 121/81
[2020-01-18] MEDS: CEFAZOLIN SOD 1 GM/NS 50ML 50 ML IV SCH ×2 (01:11→08:41)
[2020-01-18 03:40] VITALS: BP 129/84
[2020-01-18 04:55] LABS: HEMATOCRIT 35.5 % (38.2-49.6); HEMOGLOBIN 12.3 g/dL (14.0-18.0)
[2020-01-18] MEDS: SODIUM CHLORIDE 0.9% 1000ML 1,000 ML IV SCH (07:00)
--- NOTE | 2020-01-18 07:00 | NUR ---
Received patient resting in bed. No s/s of distress. Bed low, wheels locked, side rails x2. Call light in reach will continue to monitor patient.
--- NOTE | 2020-01-18 07:51 | NUR ---
DR SPEAR OFFICE PREARRANGED FOLLOWING DISCHARGE PLAN OF:HOME [address] [facility] CONFIRMED WITH [id number] DME 3 IN ONE COMMODE AND ROLLING WALKER WITH WHEELS. PROVIDED BY [employer] ELIANE [phone] ERIK SIGNED AND ON CHART COPY LEFT WITH PATIENT GAVE CARD FOR QUESTIONS AND OR CONCERNS.
--- NOTE | 2020-01-18 07:51 | Consultation ---
DATE OF CONSULTATION: REASON FOR CONSULTATION: Postop medical management. HISTORY OF PRESENT ILLNESS: The patient is a 70-year-old gentleman status post right hip arthroplasty. He is doing well postoperatively with very minimal pain. REVIEW OF SYSTEMS: He denies any shortness of breath, fever, chills, nausea, vomiting, headache, dizziness or chest pain on review of systems. PAST MEDICAL HISTORY: Significant for sleep apnea, hypertension, and hyperlipidemia. MEDICATIONS: See MAR. ALLERGIES: NONE. SOCIAL HISTORY: Work full-time, , nonsmoker, social drinker. FAMILY HISTORY: Asthma. PHYSICAL EXAMINATION: VITAL SIGNS: Temperature 97.7, pulse 79, blood pressure 129/84, sats 97% on room air. GENERAL: The patient is in no apparent distress, lying in bed, wearing his BiPAP. NECK: Supple. CARDIOVASCULAR: Regular rate and rhythm. LUNGS: Clear to auscultation bilaterally. ABDOMEN: Good bowel sounds. Soft, nontender. EXTREMITIES: No clubbing or cyanosis. Moves all extremities x4. Right hip is bandaged with no seepage. NEUROLOGIC: Nonfocal. ASSESSMENT AND PLAN: 1. Right hip pain. Continue with postoperative care and physical therapy. 2. Anemia. Check a CBC. 3. Obstructive sleep apnea. Continue with his BiPAP. 4. Hyperlipidemia. Continue with his home medication. 5. Hypertension. Continue with his home medication and monitoring of his blood pressure. Please see hospital chart for full details. MD TAMMY Walter/ADRIANNE /[id number]
[2020-01-18] MEDS: ASPIRIN 325 MG TAB PO SCH (08:41)
[2020-01-18] MEDS: CELECOXIB 100 MG CAP PO SCH (08:41)
[2020-01-18 08:42] VITALS: BP 120/92
[2020-01-18] MEDS ORDERED: AMLODIPINE BESYLATE 10 MG TAB PO SCH (09:00)
[2020-01-18] MEDS ORDERED: LOSARTAN POTASSIUM 100 MG TAB PO SCH (09:00)
--- NOTE | 2020-01-18 11:50 | NUR ---
Removed patients IV. Catheter tip intact and pressure dressing applied.
[2020-01-18] MEDS ORDERED: ONDANSETRON HCL 4 MG ORAL DISINTEGRATING TAB PO PRN (12:30)
--- NOTE | 2020-01-18 12:50 | NUR ---
Patient discharged from facility. Patient gathered all personal belongings, discharge instructions, and follow up information. Left unit in wheelchair and went home via private auto.
[2020-01-18] MEDS ORDERED: CELECOXIB 200 MG CAP PO SCH (17:00)
[2020-01-18] MEDS ORDERED: ATORVASTATIN 20 MG TAB PO SCH (21:00)
== END 2020-01-18 12:50 | disposition home or self-care (01) ==
LOC: OR 07:33 → PACU V 10:59 → MED/SURG 11:58
PROVIDERS: ADMIT Specialist; ATTEND Specialist
DX: M16.11 Unilateral primary osteoarthritis, right hip (principal); G47.33 Obstructive sleep apnea (adult) (pediatric); I10 Essential (primary) hypertension; D64.9 Anemia, unspecified; E78.5 Hyperlipidemia, unspecified; Z01.812 Encounter for preprocedural laboratory examination; Z20.828 Contact with and (suspected) exposure to other viral communicable diseases
CPT/HCPCS: 27130; 36415 ×2; 72170; 85014; 85018; 85025; 86850; 86900; 86920; 97116 ×2; 97161; 97530 ×2; G0378 ×2; J0131; J0171; J0690 ×2; J1100; J1885; J2795; J3370; J7030; J7040; U0002

== ENCOUNTER 2020-05-01 05:43 | Observation (INO) | payer MEDICARE, OTHER ==
[2020-04-13 09:40] LABS: BASOPHILS # (AUTO) 0.1 (0.0-0.1); BASOPHILS % 1.3 % (0.0-1.0); EOSINOPHILS # (AUTO) 0.2 (0.0-0.4); EOSINOPHILS % 4.4 % (0.0-6.0); HEMATOCRIT 46.3 % (38.2-49.6); HEMOGLOBIN 15.7 g/dL (14.0-18.0); LYMPHOCYTES # (AUTO) 1.2 (1.0-3.2); LYMPHOCYTES % 22.5 % (18.0-39.1); MEAN CORPUSCULAR HEMOGLOBIN 30.3 pg (28-32); MEAN CORPUSCULAR HGB CONC 33.9 g/dL (31-35); MEAN CORPUSCULAR VOLUME 89.4 fL (81-99); MONOCYTES # (AUTO) 0.5 (0.2-0.8); MONOCYTES % 9.5 % (4.4-11.3); NEUTROPHILS # (AUTO) 3.4 (2.1-6.9); NEUTROPHILS % 61.9 % (38.7-80.0); PLATELET COUNT 297 x10e3/uL (140-360); RED BLOOD COUNT 5.18 x10e6/uL (4.3-5.7); RED CELL DISTRIBUTION WIDTH 11.9 % (11.7-14.4)
[~2020-05-01] VITALS: Ht 180.3 cm; Wt 95.3 kg
[~2020-05-01 05:43] MED LIST changes: +ATORVASTATIN CA20 MG PO
[2020-05-01] MEDS ORDERED: GABAPENTIN 300 MG CAP ONE (06:22)
[2020-05-01] MEDS ORDERED: DEXAMETHASONE SOD PHOS 10 MG/1 ML VIAL ONE (06:22)
[2020-05-01] MEDS ORDERED: CELECOXIB 200 MG CAP ONE (06:22)
[2020-05-01] MEDS ORDERED: CEFAZOLIN SOD 1 GM/NS 50ML 100 ML IV ONE (06:22)
[2020-05-01] MEDS ORDERED: SODIUM CHLORIDE 0.9% 500ML 500 ML ONE (06:32)
[2020-05-01] MEDS ORDERED: TRANEXAMIC ACID 1,000 MG/10 ML ML ONE (06:32)
[2020-05-01] MEDS ORDERED: VANCOMYCIN HCL 1,000 MG ONE (06:32)
[2020-05-01] MEDS ORDERED: ROPIVACAINE 246.25 MG, EPINEPHRINE HCL 1:1000 1ML 0.5 MG, CLONIDINE HCL 0.08 MG, KETORO... INJ ONE ×5 (08:00)
[2020-05-01] MEDS ORDERED: ACETAMINOPHEN 650 MG SUPP PR PRN (08:45)
[2020-05-01] MEDS ORDERED: HYDROCODONE/APAP 5MG-325MG TAB PO PRN (08:45)
[2020-05-01] MEDS ORDERED: KETOROLAC TROMETHAMINE 30 MG/ML VIAL IV PRN (08:45)
[2020-05-01] MEDS ORDERED: DOCUSATE SODIUM 100 MG CAP PO PRN (08:45)
[2020-05-01] MEDS ORDERED: DIPHENHYDRAMINE HCL INJ 50 MG/ML VIAL IV PRN (08:45)
[2020-05-01] MEDS ORDERED: ONDANSETRON HCL INJ 2MG/ML 2ML 2 MG/ML VIAL IV PRN (08:45)
[2020-05-01 09:42] VITALS: BP 128/79
[2020-05-01] MEDS: SODIUM CHLORIDE 0.9% 1000ML 1,000 ML IV SCH ×2 (09:52→20:00)
[2020-05-01] MEDS: CELECOXIB 200 MG CAP PO SCH ×2 (09:56→17:00)
[2020-05-01 10:14] VITALS: BP 128/79
[2020-05-01 10:17] VITALS: BP 128/79
[2020-05-01] MEDS: HYDROCODONE/APAP 7.5MG-325MG 1 EA TAB PO PRN ×4 (10:30→22:23)
[2020-05-01 11:45] VITALS: BP 117/79
[2020-05-01] MEDS ORDERED: SEVOFLURANE INHAL SOLN 250 ML PEN BTL ONE (12:10)
[2020-05-01] MEDS ORDERED: ONDANSETRON HCL INJ 2MG/ML 2ML 2 MG/ML VIAL ONE (12:10)
[2020-05-01] MEDS ORDERED: PROPOFOL IV EMULSION 10 MG/ML 20 ML VIAL ONE (12:10)
[2020-05-01] MEDS ORDERED: LIDOCAINE HCL 2% LOCAL INJ 5 ML SDV VIAL INJ ONE (12:10)
[2020-05-01] MEDS ORDERED: LIDOCAINE HCL 2% JELLY 5 ML TUBE ONE (12:10)
[2020-05-01] MEDS ORDERED: BUPIVACAINE 0.25% 30ML SDV ONE (12:53)
[2020-05-01] MEDS ORDERED: EPINEPHRINE HCL 1:1000 1ML 1 MG/ML AMP ONE (12:53)
[2020-05-01] MEDS: CEFAZOLIN SOD 1 GM/NS 50ML 50 ML IV SCH ×2 (14:38→21:06)
[2020-05-01 15:44] VITALS: BP 115/77
[2020-05-01] MEDS: ASPIRIN 325 MG TAB PO SCH (17:11)
[2020-05-01 20:00] VITALS: BP_SYST 111; BP_SYST 115; BP_DIAS 75; BP_DIAS 77
[2020-05-01] MEDS ORDERED: ZOLPIDEM TARTRATE 5 MG TAB PO PRN (21:00)
[2020-05-02] VITALS: BP 103/74
[2020-05-02] MEDS: HYDROCODONE/APAP 7.5MG-325MG 1 EA TAB PO PRN ×3 (02:32→12:30)
[2020-05-02 04:00] VITALS: BP 111/77
[2020-05-02] MEDS: CEFAZOLIN SOD 1 GM/NS 50ML 50 ML IV SCH (05:11)
[2020-05-02 05:18] LABS: HEMATOCRIT 36.3 % (38.2-49.6); HEMOGLOBIN 12.3 g/dL (14.0-18.0)
[2020-05-02] MEDS: SODIUM CHLORIDE 0.9% 1000ML 1,000 ML IV SCH (05:19)
[2020-05-02 08:05] VITALS: BP 107/72
[2020-05-02] MEDS: CELECOXIB 200 MG CAP PO SCH (08:19)
[2020-05-02] MEDS: ASPIRIN 325 MG TAB PO SCH (08:19)
[2020-05-02] MEDS ORDERED: ACETAMINOPHEN 1000 MG/100 ML IV PRN (08:45)
[2020-05-02 08:55] VITALS: BP 107/72
[2020-05-02] MEDS ORDERED: AMLODIPINE BESYLATE 10 MG TAB PO SCH (09:00)
[2020-05-02] MEDS ORDERED: ONDANSETRON HCL 4 MG ORAL DISINTEGRATING TAB PO PRN (10:15)
[2020-05-02] MEDS ORDERED: ATORVASTATIN 20 MG TAB PO SCH (21:00)
== END 2020-05-02 13:50 | disposition home or self-care (01) ==
LOC: OR 05:43 → PACU V 08:41 → MED/SURG 09:35
PROVIDERS: ADMIT Specialist; ATTEND Specialist
DX: M17.12 Unilateral primary osteoarthritis, left knee (principal); Z96.641 Presence of right artificial hip joint; M16.11 Unilateral primary osteoarthritis, right hip; I10 Essential (primary) hypertension; J45.909 Unspecified asthma, uncomplicated; Z20.822 Contact with and (suspected) exposure to COVID-19; Z01.818 Encounter for other preprocedural examination
CPT/HCPCS: 27447; 36415 ×2; 73560; 85014; 85018; 85025; 86850; 86900; 86920; 93005; 97110; 97116 ×2; 97139; 97161; 97530; C1713; C1776 ×3; G0378 ×2; J0171; J0690 ×2; J1100; J1885; J2795; J3370; J7030 ×2; J7040; U0002 ×2; J2001; J2405

== ENCOUNTER → 2020-06-30 | Outpatient (RCR) | payer MEDICARE, OTHER | LOC: PT 06-21 10:39 | PROVIDERS: ATTEND Physician Assistant | DX: Z47.1 Aftercare following joint replacement surgery (principal); Z96.652 Presence of left artificial knee joint ==

== ENCOUNTER 2020-07-14 11:00 | Outpatient (RCR) | payer MEDICARE, OTHER | END 2020-07-31 | LOC: PT 11:00 | PROVIDERS: ATTEND Physician Assistant ==

== ENCOUNTER 2021-01-02 06:46 | Observation (INO) | payer MEDICARE, OTHER ==
[2020-12-29 09:03] LABS: HEMATOCRIT 44.4 % (38.2-49.6); MEAN CORPUSCULAR HEMOGLOBIN 30.4 pg (28-32); MEAN CORPUSCULAR HGB CONC 33.8 g/dL (31-35); MEAN CORPUSCULAR VOLUME 90.1 fL (81-99); PLATELET COUNT 289 x10e3/uL (140-360); RED BLOOD COUNT 4.93 x10e6/uL (4.3-5.7)
[2020-12-29 09:04] LABS: BASOPHILS # (AUTO) 0.1 (0.0-0.1); BASOPHILS % 1.4 % (0.0-1.0); EOSINOPHILS # (AUTO) 0.5 (0.0-0.4); EOSINOPHILS % 7.1 % (0.0-6.0); LYMPHOCYTES # (AUTO) 1.4 (1.0-3.2); LYMPHOCYTES % 22.2 % (18.0-39.1); MONOCYTES # (AUTO) 0.8 (0.2-0.8); MONOCYTES % 12.7 % (4.4-11.3); NEUTROPHILS # (AUTO) 3.6 (2.1-6.9); NEUTROPHILS % 56.1 % (38.7-80.0)
[~2021-01-02] VITALS: Ht 180.3 cm; Wt 93.0 kg
[~2021-01-02 06:46] MED LIST changes: +CELECOXIB 200 MG CAP ONE; +DEXAMETHASONE SOD PHOS 10 MG/1 ML VIAL ONE; +GABAPENTIN 300 MG CAP ONE; +SODIUM CHLORIDE 0.9% 500ML 500 ML ONE; +SODIUM CHLORIDE 0.9% 50ML 100 ML ONE; +TRANEXAMIC ACID 1,000 MG/10 ML ML ONE; +Vancomycin IV 1,000 MG ONE; +Vancomycin IV 500 MG ONE
[2021-01-02] MEDS ORDERED: ROPIVACAINE 246.25 MG, EPINEPHRINE HCL 1:1000 1ML 0.5 MG, CLONIDINE HCL 0.08 MG, KETORO... INJ ONE ×5 (07:30)
[2021-01-02] MEDS ORDERED: HYDROCODONE/APAP 5MG-325MG TAB PO PRN (08:45)
[2021-01-02] MEDS ORDERED: ONDANSETRON HCL INJ 2MG/ML 2ML 2 MG/ML VIAL IV PRN (08:45)
[2021-01-02] MEDS ORDERED: DOCUSATE SODIUM 100 MG CAP PO PRN (08:45)
[2021-01-02] MEDS ORDERED: KETOROLAC TROMETHAMINE 30 MG/ML VIAL IV PRN (08:45)
[2021-01-02] MEDS ORDERED: DIPHENHYDRAMINE HCL INJ 50 MG/ML VIAL IV PRN (08:45)
[2021-01-02] MEDS ORDERED: ACETAMINOPHEN 650 MG SUPP PR PRN (08:45)
[2021-01-02] MEDS ORDERED: HYDROCODONE/APAP 7.5MG-325MG 1 EA TAB PO PRN (08:45)
[2021-01-02] MEDS ORDERED: ZOLPIDEM TARTRATE 5 MG TAB PO PRN (08:45)
[2021-01-02] MEDS ORDERED: SODIUM CHLORIDE 0.9% 1000ML 1,000 ML IV SCH (08:45)
[2021-01-02] MEDS: ASPIRIN 325 MG TAB PO SCH ×2 (09:00→16:54)
[2021-01-02] MEDS ORDERED: FENTANYL CITRATE/PF 100MCG/2 ML INJ ONE ×2 (09:08→16:59)
[2021-01-02 09:55] VITALS: BP 109/69
[2021-01-02 10:54] VITALS: BP 109/69
[2021-01-02 10:58] VITALS: BP 109/69
[2021-01-02 11:29] VITALS: BP 104/64
[2021-01-02] MEDS ORDERED: ROPIVACAINE 0.5% 5 MG/ML 30 ML SDV ONE (13:31)
[2021-01-02] MEDS ORDERED: LIDOCAINE HCL 2% LOCAL 20 ML VIAL ONE (13:31)
[2021-01-02] MEDS ORDERED: Cefazolin 1 GM in SODIUM CHLORIDE 0.9% 50ML 50 ML IV SCH (14:00)
[2021-01-02] MEDS ORDERED: EPHEDRINE SULFATE INJ 50 MG/ML VIAL ONE (14:03)
[2021-01-02] MEDS ORDERED: SEVOFLURANE INHAL SOLN 250 ML PEN BTL ONE (14:03)
[2021-01-02] MEDS ORDERED: POVIDONE IODINE 0.05% 0.05 % ML PO ONE (14:03)
[2021-01-02] MEDS ORDERED: PROPOFOL IV EMULSION 10 MG/ML 20 ML VIAL ONE (14:03)
[2021-01-02] MEDS ORDERED: ONDANSETRON HCL INJ 2MG/ML 2ML 2 MG/ML VIAL ONE (14:03)
[2021-01-02] MEDS ORDERED: LIDOCAINE HCL 2% LOCAL INJ 5 ML SDV VIAL INJ ONE (14:03)
[2021-01-02 15:57] VITALS: BP 107/60
[2021-01-02] MEDS ORDERED: MIDAZOLAM HCL 2 MG/2 ML VIAL ONE (16:59)
[2021-01-02] MEDS ORDERED: CELECOXIB 200 MG CAP PO SCH (17:00)
[2021-01-03] MEDS ORDERED: ACETAMINOPHEN 1000 MG/100 ML IV PRN (08:45)
== END 2021-01-02 18:50 | disposition home or self-care (01) ==
LOC: OR 06:46 → PACU V 08:36 → MED/SURG 09:48
PROVIDERS: ADMIT Specialist; ATTEND Specialist
DX: M17.0 Bilateral primary osteoarthritis of knee (principal); Z96.652 Presence of left artificial knee joint; Z96.611 Presence of right artificial shoulder joint; I10 Essential (primary) hypertension; J45.909 Unspecified asthma, uncomplicated; Z20.822 Contact with and (suspected) exposure to COVID-19; Z01.818 Encounter for other preprocedural examination; E78.00 Pure hypercholesterolemia, unspecified; I73.9 Peripheral vascular disease, unspecified
CPT/HCPCS: 27447; 36415; 71046; 73560; 85025; 86850; 86900; 93005; 97110; 97116; 97161; 97530; C1713 ×2; C1776 ×3; G0378; J0171; J0690; J1100; J1885; J2001 ×2; J2250; J2405; J2704; J2795; J3010; J3370; J7030; J7040; U0002; 86920

== ENCOUNTER 2021-02-28 11:00 | Outpatient (RCR) | payer MEDICARE, OTHER ==
[~2021-02-28 11:00] MED LIST changes: -CELECOXIB 200 MG CAP ONE; -DEXAMETHASONE SOD PHOS 10 MG/1 ML VIAL ONE; -GABAPENTIN 300 MG CAP ONE; -SODIUM CHLORIDE 0.9% 500ML 500 ML ONE; -SODIUM CHLORIDE 0.9% 50ML 100 ML ONE; -TRANEXAMIC ACID 1,000 MG/10 ML ML ONE; -Vancomycin IV 1,000 MG ONE; -Vancomycin IV 500 MG ONE
== END 2021-03-02 ==
LOC: PT 11:00
PROVIDERS: ATTEND Physician Assistant
DX: Z47.1 Aftercare following joint replacement surgery (principal); Z96.651 Presence of right artificial knee joint

== ENCOUNTER 2021-03-16 10:00 | Outpatient (RCR) | payer MEDICARE, OTHER | END 2021-04-02 | LOC: PT 10:00 | PROVIDERS: ATTEND Physician Assistant | DX: Z47.1 Aftercare following joint replacement surgery (principal); Z96.651 Presence of right artificial knee joint ==

== ENCOUNTER → 2024-09-23 | Day surgery (SDC) | payer MEDICARE ==
[~2024-09-23] MED LIST changes: +CLARITIN10 MG PO; +ESMOLOL HCL 100MG/10ML 10 MG/ML VIAL ONE; +GLUCAGON FOR INJ 1 MG VIAL ONE; +HYOSCYAMINE SULFATE 0.5 MG/ML INJ ONE; +LACTATED RINGER'S 1,000 ML ONE; +LIDOCAINE HCL 2% LOCAL INJ 5 ML SDV VIAL INJ ONE; +METOPROLOL SUCC25 MG PO; +PROPOFOL IV EMULSION 50 ML IV ONE
[2024-09-23 10:40] LABS: BASOPHILS % 0.6 % (0.0-1.0); EOSINOPHILS % 2.8 % (0.0-6.0); LYMPHOCYTES % 17.2 % (18.0-39.1); MONOCYTES % 10.8 % (4.4-11.3); NEUTROPHILS % 68.3 % (38.7-80.0); RED CELL DISTRIBUTION WIDTH 12.5 % (11.7-14.4)
[2024-09-23 14:13] VITALS: TEMP 97
[2024-09-23 14:40] VITALS: BP 111/75; PULSE 83; RESP 18; O2SAT 99
== END | disposition home or self-care (01) ==
LOC: OR 10:01
PROVIDERS: ATTEND Internal Medicine Gastroenterology
DX: Z12.11 Encounter for screening for malignant neoplasm of colon (principal); D12.3 Benign neoplasm of transverse colon; D12.2 Benign neoplasm of ascending colon; K63.5 Polyp of colon; K62.1 Rectal polyp; K55.20 Angiodysplasia of colon without hemorrhage; K57.30 Diverticulosis of large intestine without perforation or abscess without bleeding; K64.8 Other hemorrhoids; I10 Essential (primary) hypertension; Z01.810 Encounter for preprocedural cardiovascular examination; Z01.812 Encounter for preprocedural laboratory examination; Z88.8 Allergy status to other drugs, medicaments and biological substances; Z79.899 Other long term (current) drug therapy
CPT/HCPCS: 36415; 45385; 85025; 93005; J1610; J1980; J2003; J2704; J7121; 45378